=== PATIENT | male | born 1970 | race Two or more races ===

== ENCOUNTER 2017-02-01 09:18 | Emergency (ER) | payer SELFPAY ==
[~2017-02-01] VITALS: Ht 182.9 cm; Wt 83.7 kg
[2017-02-01] MEDS ORDERED: HYDROcodone/APAP 5/325 TABLET PO PRN (10:30)
[2017-02-01] MEDS ORDERED: HYDROcodone/APAP 5/325 TABLET ONE (10:33)
[2017-02-01 12:22] VITALS: BP 133/70
== END 2017-02-01 12:24 | disposition home or self-care (01) ==
LOC: ED 10:51
DX: S00.03XA Contusion of scalp, initial encounter (principal); L02.811 Cutaneous abscess of head [any part, except face]; Y04.2XXA Assault by strike against or bumped into by another person, initial encounter
CPT/HCPCS: 70450; 99284